=== PATIENT | female | born 1980 | race Caucasian/White ===

== ENCOUNTER 2024-11-18 14:04 | Emergency (ER) | payer OTHER, SELFPAY ==
[2024-11-18 14:04] VITALS: BMI 47.9
[2024-11-18 14:17] VITALS: BP 149/88; PULSE 125; RESP 18; TEMP 37.1; O2SAT 96
--- NOTE | 2024-11-18 14:36 | XR_ITS ---
Examination: Pelvic ultrasound, transabdominal, complete Technique: Transabdominal ultrasound of the pelvis performed using grayscale imaging Date and time of exam: November 18, 2024 1502 hours INDICATIONS: Vaginal bleeding beginning one week ago FINDINGS: Uterus 8.7 cm endometrial stripe 2.6 cm No uterine mass or intrauterine gestation Right ovary 2.3 cm arterial flow, likely hydrosalpinx tubular fluid-filled structure measuring 8 mm in thickness Left ovary 3.5 cm arterial flow 27 x 16 mm cyst IMPRESSION: No uterine mass or intrauterine gestation Findings suspicious for left hydrosalpinx 27 x 16 mm simple left ovarian cyst
--- NOTE | 2024-11-18 14:37 | PD.EDRME ---
Rapid Medical Screening Exam RME Arrival date/time: 11/18/24 14:04 This is a 44-year-old female comes in with complaints of vaginal bleeding. Patient states been going on the last month. Patient has been getting irregular. Patient reports that over the past few days her menstrual periods have been getting heavy patient reports that she has been feeling lightheaded. Patient has history of and tubal ligation. I have greeted and performed a focused initial assessment of this patient. Initial appropriate labs ordered at this time. A comprehensive ED assessment and evaluation of the patient and analysis of all test and completion of medical decision making process will be conducted by additional ED provider. Chief Complaint: Vaginal Bleeding Time Seen by Provider: 11/18/24 14:12 Vital signs: Vital Signs Temperature 98.8 F 11/18/24 14:17 Pulse Rate 125 H 11/18/24 14:17 Respiratory Rate 18 11/18/24 14:17 Blood Pressure 149/88 H 11/18/24 14:17 Pulse Oximetry (%) 96 11/18/24 14:17 Oxygen Delivery Method Room Air 11/18/24 14:17
[2024-11-18 15:04] LABS: Basophils # (Auto) 0.1 Thou/mm3 (0.0-0.2); Basophils % (Auto) 1 % (0-2.5); Eosinophils # (Auto) 0.1 Thou/mm3 (0.0-0.5); Eosinophils % (Auto) 1 % (0-10); Hematocrit 37.6 % (36.0-46.0); Hemoglobin 12.6 g/dL (12.0-16.0); Immature Granulocytes % (Auto) 0 % (0-0); Immature Granulocytes Auto 0.02 Thou/mm3 (0.00-0.00); Lymphocytes # (Auto) 1.4 Thou/mm3 (1.0-4.8); Lymphocytes % (Auto) 12 % (10-50); Mean Corpuscular HGB Conc 33.5 g/dl (31.0-37.0); Mean Corpuscular Hemoglobin 28.3 pg (25.0-35.0); Mean Corpuscular Volume 84 fL (80-100); Monocytes # (Auto) 0.4 Thou/mm3 (0.0-0.8); Monocytes % (Auto) 4 % (0-12); Neutrophils # (Auto) 9.2 Thou/mm3 (1.8-7.7); Neutrophils % (Auto) 83 % (37-80); Nucleated Red Blood Cell % 0 /100 WBC (0); Platelet Count 307 Thou/mm3 (140-440); RDW Standard Deviation 44.6 fL (36.4-46.3); Red Blood Count 4.46 Miln/mm3 (4.00-5.20)
[2024-11-18 15:30] LABS: Alanine Aminotransferase 12 U/L (10-49); Albumin, Serum 4.7 gm/dL (3.5-5.0); Albumin/Globulin Ratio 1.7 (1.2-2.2); Alkaline Phosphatase 94 U/L (46-116); Anion Gap 10 (7-16); Aspartate Amino Transferase 19 U/L (0-34); BUN/Creatinine Ratio 15 Ratio (12-20); Bilirubin,Total 0.3 mg/dL (0.3-1.2); Blood Urea Nitrogen 9 mg/dL (9-23); Calcium 9.1 mg/dL (8.3-10.6); Calcium (Corrected) 9.1 mg/dL (8.5-10.1); Carbon Dioxide 22.9 mMol/L (20.0-31.0); Chloride 105 mMol/L (98-107); Creatinine (Component) 0.6 mg/dL (0.6-1.3); Estimated Creatinine Clearance 188.4 mL/min (>60); Globulin 2.7 gm/dL (2.3-3.5); Glucose 131 mg/dL (74-106); Osmolality,Calculated 276 (275-295); Potassium 3.7 mMol/L (3.4-5.1); Sodium 138 mMol/L (136-145); Total Protein 7.4 gm/dL (5.7-8.2); eGFR > 60 See Note
--- NOTE | 2024-11-18 15:50 | PD.EDRME ---
Rapid Medical Screening Exam RME Arrival date/time: 11/18/24 14:04 11/18/24 14:04 This is a 44-year-old female comes in with complaints of vaginal bleeding. Patient states been going on the last month. Patient has been getting irregular. Patient reports that over the past few days her menstrual periods have been getting heavy patient reports that she has been feeling lightheaded. Patient has history of and tubal ligation. I have greeted and performed a focused initial assessment of this patient. Initial appropriate labs ordered at this time. A comprehensive ED assessment and evaluation of the patient and analysis of all test and completion of medical decision making process will be conducted by additional ED provider. Chief Complaint: Vaginal Bleeding Time Seen by Provider: 11/18/24 14:12 Vital signs: Vital Signs Temperature 98.8 F 11/18/24 14:17 Pulse Rate 125 H 11/18/24 14:17 Respiratory Rate 18 11/18/24 14:17 Blood Pressure 149/88 H 11/18/24 14:17 Pulse Oximetry (%) 96 11/18/24 14:17 Oxygen Delivery Method Room Air 11/18/24 14:17 RME Narrative: 11/18/24 14:04 This is a 44-year-old female comes in with complaints of vaginal bleeding. Patient states been going on the last month. Patient has been getting irregular. Patient reports that over the past few days her menstrual periods have been getting heavy patient reports that she has been feeling lightheaded. Patient has history of and tubal ligation. I have greeted and performed a focused initial assessment of this patient. Initial appropriate labs ordered at this time. A comprehensive ED assessment and evaluation of the patient and analysis of all test and completion of medical decision making process will be conducted by additional ED provider.
[2024-11-18 16:11] LABS: Collection Type, Urine Voided
[2024-11-18 16:44] LABS: Bilirubin,Urine Negative (Negative); Blood,Urine 3+ (Negative); Color,Urine Yellow (Lt Yel-Yel); Glucose, Urine Negative (Negative); Ketones,Urine Negative (Negative); Leukocyte Esterase,Urine Positive (Negative); Nitrite,Urine Negative (Negative); Protein,Urine 1+ (Neg - Trace); RBC,Urine 3365 /hpf (0-3); Squamous Epithelial Cell,Urine 7 /hpf (0-5); Urobilinogen,Urine Negative mg/dL (0.0-1.0); WBC,Urine 39 /hpf (0-5)
[2024-11-18 17:05] LABS: Culture Indicated,Urine Yes
[2024-11-18 17:06] LABS: Clarity,Urine Hazy (Clear/Hazy)
[2024-11-18 17:40] VITALS: BP 167/97; PULSE 86; RESP 18; TEMP 36.8; O2SAT 98
--- NOTE | 2024-11-18 18:17 | EDNOTE_ITS ---
ED OB Contraction Preg RMI/HPI General Chief complaint: Vaginal Bleeding Stated complaint: VAG BLEEDING Time Seen by Provider: 11/18/24 14:12 Source: patient, RN notes reviewed and old records reviewed Arrival date/time: 11/18/24 14:04 Mode of arrival: ambulatory Limitations: no limitations RME / HPI RME / HPI Narrative: 11/18/24 14:04 This is a 44-year-old female comes in with complaints of vaginal bleeding. Patient states been going on the last month. Patient has been getting irregular. Patient reports that over the past few days her menstrual periods have been getting heavy patient reports that she has been feeling lightheaded. Patient has history of and tubal ligation. I have greeted and performed a focused initial assessment of this patient. Initial appropriate labs ordered at this time. A comprehensive ED assessment and evaluation of the patient and analysis of all test and completion of medical decision making process will be conducted by additional ED provider. DR. ESPINOZA?S MAIN ED EVALUATION: 44-year-old male/female with history of x 2 presenting to the emergency department via private auto/EMS who is presenting for chief/stated complaint of irregular vaginal bleeding. Associated symptoms include irregular vaginal bleeding on and off for the last 1 month. Associated lightheadedness of the last few days. Patient denies syncope or shortness of breath or any other associated symptoms or medical complaints. Review of the record shows (). - PMH: Vaginal bleeding x 1 month - PSH: and tubal ligation - Social history: Denies - Current medications: Denies is not on control pill PCP is does not know but Dr Mosher is her primary care physician Related Data Home Medications ?Medication ?Instructions ?Recorded ?Confirmed CONTROL 0.35 mg PO QAM ##0 12/14/15 Allergies Allergy/AdvReac Type Severity Reaction Status Date / Time Sulfa (Sulfonamide Allergy Unknown Verified 11/18/24 14:07 Antibiotics) Review of Systems Review of Systems Systems Reviewed: All systems reviewed, normal except as documented Narrative Review of Systems: GEN: Not feeling right PELVIC: heavy and irregular vaginal bleeding Musc/skel: No back pain Neuro: Dizziness ED Exam Narrative Physical exam: GENERAL: Patient no acute distress, overweight HEAD/EYES/EARS/NOSE/THROAT: normo-cephalic, atraumatic, mucus membranes are moist. No cervical tenderness palpation midline. Supple neck. CARDIOVASCULAR: regular rate and regular rhythm, no murmurs, heart sounds are not distant, strong pulses in all four extremities that are equal and symmetric bilateral upper and lower extremities, normal capillary refill. CHEST/PULMONARY: normal chest rise and fall, good air movement, clear to auscultation bilaterally, normal inspiratory to expiratory ratios without evidence of respiratory distress. ABDOMEN: soft, not tender, no masses appreciated BACK: normal range of motion without pain. 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 SKIN: warm, dry, well-perfused, no jaundice, no rash, PSYCH: calm, cooperative, no evidence of psychosis or agitation General Limitations: Present no limitations Course Course Course Narrative: Labs are reviewed. Quality Measures none Orders Category Date Time Status US pelvic complete Stat Exams 11/18/24 14:36 Completed CBC Stat Lab 11/18/24 14:58 Completed Comprehensive Metabolic Panel Stat Lab 11/18/24 14:58 Completed Type and Screen Stat Lab 11/18/24 14:58 Completed Urinalysis, C/S if Indicated Stat Lab 11/18/24 15:50 Completed Urine Culture Stat Lab 11/18/24 15:50 Received Reevaluation(s) Reevaluation #1: Patient in no acute distress. Lightheaded this has resolved. Vital Signs Vital signs: Vital Signs Temperature 98.8 F 11/18/24 14:17 Pulse Rate 125 H 11/18/24 14:17 Respiratory Rate 18 11/18/24 14:17 Blood Pressure 149/88 H 11/18/24 14:17 Pulse Oximetry (%) 96 11/18/24 14:17 Oxygen Delivery Method Room Air 11/18/24 14:17 Vaginal Bleeding MDM Narrative MDM Narrative: 44-year-old female with history of irregular vaginal bleeding with irregular bleeding over the last 1 month. Relevant past past medical history includes being on control pills. Differential diagnosis includes irregular vaginal bleeding, fibroid, infection, menses, kidney stone. Given the patient?s symptom characteristics doubt serious coronary syndrome and the nature of her symptoms support irregular vaginal bleeding. 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 Vitals will be monitored and symptoms reassessed. Disposition will depend on results of the test, ultrasound, and reevaluation While in the emergency department the patient had labs and pelvic ultrasound obtained. Repeat heart rate at approximately 86 is down to 125 blood pressure stable betwe en 149 and 167 systolic. Suspect suspect vaginal vaginal bleeding probably secondary to menopause versus being on her medications. Labs are reviewed and interpreted by me. H&H is stable at 12/37. The patient has no leukocytosis or thrombocytopenia. Electrolytes are normal, and no evidence of dehydration BUN/creatinine are normal. Glucose is slightly elevated at 131 which is not important for this ED visit. Patient does have some blood in her urine but this may be from vaginal source. Otherwise no evidence of UTI. 1823: Patient states she is feeling significantly better. Suggested E/M Coding Level 14936 (This level has been selected based on the 2022 CPT guidelines for E/M codes in the ED.) COPA: This patient has moderate complexity 1 undiagnosed new problem with uncertain prognosis DATA: This patient required moderate data complexity Tests Ordered: 3 Tests Reviewed: 3 Independent Historian? Yes - Spouse / Partner / Significant Other, No syncope RISK: This patient has high risk due to decision regarding hospitalization: Patient has Dysfunctionl Vaginal Bleeding and discussed with patient benefits and drawbacks of admission and made a shared decision not to admit. Patient data External records reviewed:: [facility] previous records (No prior ED records available for review.) Clinical information provided by:: patient Social determinants that could affect healthcare access:: none Patient has the following chronic illnesses:: N/A How is presenting disease/condition affected by chronic disease/condition?: no chronic disease Evaluation data The following diagnostics were reviewed and interpreted by me:: lab results and radiology exam(s) Lab and/or radiology exams considered but not ordered:: None Interpretation Summary: PELVIC US FINDINGS: Uterus 8.7 cm endometrial stripe 2.6 cm No uterine mass or intrauterine gestation Right ovary 2.3 cm arterial flow, likely hydrosalpinx tubular fluid-filled structure measuring 8 mm in thickness Left ovary 3.5 cm arterial flow 27 x 16 mm cyst IMPRESSION: No uterine mass or intrauterine gestation Findings suspicious for left hydrosalpinx 27 x 16 mm simple left ovarian cyst Labs Urine shows 1+ protein and 3+ blood. Labs are reviewed and interpreted by me. H&H is stable at 12/37. The patient has no leukocytosis or thrombocytopenia. Electrolytes are normal, and no evidence of dehydration BUN/creatinine are normal. Glucose is slightly elevated at 131 which is not important for this ED visit. Patient does have some blood in her urine but this may be from vaginal source. Otherwise no evidence of UTI. Medications / Prescriptions Medications or Prescriptions considered but not ordered:: None Medication administrations:: See above if any Consultations Consultation(s) initiated? (list below): No Diagnosis Vaginal Bleeding Differential Diagnosis: missed , threatened , dysfunctional uterine bleeding, menometrorrhagia, ectopic without intrauterine and vaginal bleeding Most likely diagnosis given after review of the tests above:: Dysfunctional uterine bleeding Admission Indicated Admission indicated?: not indicated Explain why admission is indicated or not indicated:: No significant findings indicative of admission at this time. Admission Request Was there a request for admission?: No Disposition Plan Disposition Plan: Discharge Discharge Attestation Discharge Attestation: The patient and all family members were given an opportunity to ask questions and understood the discharge instructions. Discharge instructions specifically effects, indications for sooner follow up or return to the emergency department, and the expected course of current diagnosis. Patient condition: Stable Discharge Plan Plan Patient Disposition: HOME (Self Care) Patient condition on transfer: Stable Prescriptions/Referrals Prescriptions/Med Rec: No Action CONTROL 0.35 mg PO QAM Qty: 0 Referrals: Romario Mosher MD [Physician] - In 1 week Problem List Clinical Impression: Dysfunctional uterine bleeding Patient/Caregiver Discharge Instructions Education Materials: Understanding Uterine Bleeding, ED Dysfunctional Uterine Bleeding Additional Instructions: DISCHARGE INSTRUCTIONS Even though you have been discharged from the Emergency Department, there are several things that you should do to ensure that you receive proper care: 1. DO READ your discharge instructions as these contain important information concerning your medical care. 2. If medication has been prescribed for your condition, fill the prescription as soon as possible and follow the directions on the medication. 3. RETURN AT ONCE TO THE EMERGENCY DEPARTMENT if you have any problems or concerns. These include but are not limited to fever, worsening pain(belly, chest, head, etc?), worsening shortness of breath, uncontrollable bleeding, inability to tolerate food and water, or any condition that makes you question your well-being. Also, if your symptoms do not improve in the next 12-24 hours, return to the ER or seek medical care immediately. 4. Be sure to follow up with your regular physician or specialist as instructed at discharge as this is the best way to ensure that you receive the very best of care. If you do not have a primary care physician, please contact a physician group and make an appointment. 5. Please visit [employer] ([employer]) for coupons regarding your prescriptions. It is a free service for you to use and can help reduce the cost of your medication. We would like to thank you for coming today and our hope is that we served you and your family well during your stay Print Language: Lithuanian Stand Alone Forms: [place] Award Info., Work/School Release, Patient Portal Info Letter
== END 2024-11-18 19:08 | disposition home or self-care (01) ==
PROVIDERS: Nurse Practitioner Family; Emergency Provider Emergency Medicine; PCP Physician Assistant
DX: N93.8 Other specified abnormal uterine and vaginal bleeding (principal)
CPT/HCPCS: 36415; 76856; 80053; 81001; 85025; 86850; 86900; 86901; 87077; 87086; 87186; 99284